=== PATIENT | female | born 1995 | race Caucasian/White ===

== ENCOUNTER 2017-12-26 22:50 | Emergency (ER) | payer OTHER ==
[2017-12-26] MEDS ORDERED: NORMAL SALINE 1000 ML 1,000 ML IV ONE (23:26)
[2017-12-26] MEDS ORDERED: MORPHINE SULFATE 10 MG/ML INJ IV ONE (23:26)
[2017-12-26] MEDS ORDERED: ONDANSETRON HCL INJ/PF 4 MG/2 ML SDV IV ONE (23:26)
--- NOTE | 2017-12-27 00:14 | RADIOLOGY REPORT (SQ) ---
US ABDOMEN DOPPLER LIMITED HISTORY: RUQ abdominal pain. COMPARISON: None. TECHNIQUE: Grayscale and color Doppler imaging of the right upper quadrant was performed. FINDINGS: The liver measures 15.6 cm. Normal liver echogenicity. Gallbladder is contracted, limiting evaluation for wall thickening. No shadowing gallstones are seen. Common bile duct measures 3 mm. No intrahepatic biliary ductal dilatation. Visualized pancreas is unremarkable. Right kidney measures 12.1 cm in length, without hydronephrosis. Visualized portions of the IVC and aorta are patent. IMPRESSION: Gallbladder is contracted, limiting evaluation for wall thickening. No shadowing gallstones.
[2017-12-27 00:17] LABS: ABSOLUTE BASOPHILS # (AUTO) 0.1 10^3/uL (0.0-0.2); ABSOLUTE EOSINOPHILS # (AUTO) 0.2 10^3/uL (0.0-0.6); ABSOLUTE LYMPHOCYTES (AUTO) 2.2 10^3/uL (0.5-4.7); ABSOLUTE MONOCYTES (AUTO) 0.4 10^3/uL (0.1-1.4); ABSOLUTE NEUT (AUTO) 2.5 10^3/uL (1.7-8.2); BASOPHILS % (AUTO) 1.2 % (0-2); EOSINOPHILS % (AUTO) 3.5 % (0-6); HEMATOCRIT 39.7 % (36.0-47.0); HEMOGLOBIN 13.3 g/dL (12.0-15.5); LYMPHOCYTES % (AUTO) 41.2 % (13-45); MEAN CORPUSCULAR HEMOGLOBIN 30.3 pg (27.0-33.4); MEAN CORPUSCULAR HGB CONC 33.5 g/dL (32.0-36.0); MEAN CORPUSCULAR VOLUME 90 fl (80-97); MONOCYTES % (AUTO) 7.7 % (3-13); PLATELET COUNT 268 10^3/uL (150-450); SEGMENTED NEUTROPHILS % (AUTO) 46.4 % (42-78); TOTAL CELLS COUNTED % (AUTO) 100 %; WHITE BLOOD COUNT 5.4 10^3/uL (4.0-10.5)
--- NOTE | 2017-12-27 00:20 | ER Document Report ---
ED General - General Chief Complaint: Epigastric Pain Stated Complaint: RIGHT SIDE/RIB PAIN Time Seen by Provider: 12/26/17 23:17 Notes: Patient is a 22-year-old female who presents with complaint of right upper quadrant and epigastric abdominal pain. She says is worse with eating. She had some nausea and vomiting. No blood or emesis. No black or tarry stools. No diarrhea. No blood in her stools. She first noticed pain a week ago. She was seen at [facility] at that time diagnosed with a UTI. She follow-up with medical clinic medical clinic told her that she did not have a UTI and placed her on Pepcid. She also has Phenergan prescribed for her. She went a few days without pain and the pain started occurring again became worse tonight after eating and therefore she came to the ER. No fevers. She denies abnormal vaginal discharge or bleeding. TRAVEL OUTSIDE OF THE [place] IN LAST 30 DAYS: No - Related Data Allergies/Adverse Reactions: No Known Allergies Allergy (Unverified 12/26/17 22:54) Past Medical History - Social History Smoking Status: Never Smoker Frequency of alcohol use: None Drug Abuse: None Family History: Other - cholecystectomy for mother and sister Review of Systems - Review of Systems Notes: My Normal Review Basic REVIEW OF SYSTEMS: CONSTITUTIONAL : Denies fever, chills, or sweats. Denies recent illness. EENT: Denies eye, ear, throat, or mouth pain or symptoms. Denies nasal or sinus congestion. CARDIOVASCULAR: Denies chest pain. RESPIRATORY: Denies cough, cold, or chest congestion. Denies shortness of breath, difficulty breathing, or wheezing. GASTROINTESTINAL: Right upper quadrant and epigastric abdominal pain. Some vomiting. GENITOURINARY: Denies difficulty urinating, painful urination, burning, frequency, or blood in urine. FEMALE GENITOURINARY: Denies vaginal bleeding, abnormal or irregular periods. LMP: MUSCULOSKELETAL: Denies neck or back pain or joint pain or swelling. SKIN: Denies rash or skin lesions. NEUROLOGICAL: Denies altered mental status or loss of consciousness. One episode of dizziness after getting out of the shower. ALL OTHER SYSTEMS REVIEWED AND NEGATIVE. Physical Exam - Vital signs Vitals: Temp Pulse Resp BP Pulse Ox 97.7 F 86 16 116/73 100 12/26/17 23:06 12/26/17 23:06 12/26/17 23:06 12/26/17 23:06 12/26/17 23:06 - Notes Notes: General Appearance: Well nourished, alert, cooperative, no acute distress, mild obvious discomfort. Vitals: reviewed, See vital signs table. Head: no swelling or tenderness to the head Eyes: PERRL, EOMI, Conjuctiva clear Mouth: No decreasd moisture Lungs: No wheezing, No rales, No rhonci, No accessory muscle use, good air exchange bilaterally. Heart: Normal rate, Regular rythm, No murmur, no rub Abdomen: Normal BS, soft, No rigidity, mild right upper quadrant epigastric abdominal tenderness to palpation. Remainder of abdomen is nontender. Extremities: strength 5/5 in all extremities, good pulses in all extremities, no swelling or tenderness in the extremities, no edema. Skin: warm, dry, appropriate color, no rash Neuro: speech clear, oriented x 3, normal affect, responds appropriately to questions. Course - Re-evaluation Re-evalutation: 12/27/17 01:15 On reevaluation patient is not in pain and has not had any vomiting since arriving here to the ER. She looks very well. I feel she is safe to be discharged home. Her gallbladder workup is negative. Despite her having a negative workup of her gallbladder she may still have underlying bili dyskinesia. Her symptoms could also be caused by gastritis or nonbleeding ulcer. I informed her to follow-up with primary care doctor to follow-up with the GI physician for reevaluation and to determine whether not she needs endoscopy, HIDA scan or both. I encouraged her to avoid spicy foods, fatty foods, or fried foods. Encouraged her return to ER immediately if she has worsening recurrent pain, vomiting, or fevers. Patient agrees with plan will be discharged home. I did not obtain a urinalysis at this time as patient has no urinary symptoms and has no pain in her lower abdomen. Dictation of this chart was performed using voice recognition software; therefore, there may be some unintended grammatical errors. - Vital Signs Vital signs: Temp Pulse Resp BP Pulse Ox 97.7 F 86 16 116/73 100 12/26/17 23:06 12/26/17 23:06 12/26/17 23:06 12/26/17 23:06 12/26/17 23:06 - Laboratory Result Diagrams: 12/27/17 00:04 12/27/17 00:04 Laboratory results interpreted by me: 12/27/17 00:04 Glucose 72 L Direct Bilirubin 0.5 H Discharge - Discharge Clinical Impression: Abdominal pain Qualifiers: Abdominal location: right upper quadrant Qualified Code(s): R10.11 - Right upper quadrant pain Condition: Good Disposition: HOME, SELF-CARE Additional Instructions: I suspect that your abdominal pain is either related to your gallbladder or potentially related to a gastritis or inflammation of your stomach. Please continue to take the medicine prescribed by your doctor for your stomach. We will also add a medication called Carafate and a prescription for a nausea medication called Zofran. The Zofran is less likely to make you sleepy or dizzy as compared to the Phenergan which is more likely to make you sleepy or dizzy. Please avoid Motrin or ibuprofen or Aleve. It is okay to take Tylenol. Please follow-up with the GI physician I referred you to. They will reevaluate you and determine whether or not you need an endoscopy to look at your stomach or a HIDA scan to evaluate the function of your gallbladder. Please return to the ER immediately if you have fevers, intractable pain, or intractable vomiting. Please eat a very bland diet and avoid any spicy foods, fast food, fried foods, or any foods that contain fat. No alcohol. Prescriptions: Ondansetron [Zofran Odt 4 mg Tablet] 1 tab PO Q4H PRN #15 tab.rapdis PRN Reason: For Nausea/Vomiting Sucralfate [Carafate Susp 1 Gm/10 Ml Udcup] 1 gm PO ACHS 10 Days udc Forms: Return to Work Referrals: NATALEE MORALES MD [ACTIVE STAFF] - 12/30/17
[2017-12-27 00:33] LABS: ALANINE AMINOTRANSFERASE 22 U/L (9-52); ALBUMIN 4.1 g/dL (3.5-5.0); ALKALINE PHOSPHATASE 48 U/L (38-126); ANION GAP 9 (5-19); ASPARTATE AMINO TRANSFERASE 36 U/L (14-36); BILIRUBIN,DIRECT 0.5 mg/dL (0.0-0.4); BILIRUBIN,TOTAL 1.2 mg/dL (0.2-1.3); BLOOD UREA NITROGEN 17 mg/dL (7-20); CALCIUM 9.4 mg/dL (8.4-10.2); CARBON DIOXIDE 26 mmol/L (22-30); CHLORIDE 104 mmol/L (98-107); GLUCOSE 72 mg/dL (75-110); LIPASE 100.9 U/L (23-300); SODIUM 138.8 mmol/L (137-145); TOTAL PROTEIN 7.1 g/dL (6.3-8.2)
[2017-12-27 01:37] VITALS: BP 116/77
== END 2017-12-27 01:38 | disposition home or self-care (01) ==
LOC: ER 22:50
DX: R10.11 Right upper quadrant pain (principal); R10.13 Epigastric pain; R11.2 Nausea with vomiting, unspecified; R42 Dizziness and giddiness
CPT/HCPCS: 99284; 96361; 96374; 96375; 36415; 83690; 84703; 85025; 80053; 76705; 93976; J2270; J2405; J7030

== ENCOUNTER 2018-12-04 08:57 | Emergency (ER) | payer OTHER ==
[2018-12-04] MEDS ORDERED: METOCLOPRAMIDE HCL INJ/PF 10 MG/2 ML SDV IV ONE (10:32)
[2018-12-04] MEDS ORDERED: NORMAL SALINE 1000 ML 1,000 ML IV ONE (10:32)
--- NOTE | 2018-12-04 10:37 | ER Document Report ---
ED General - General Chief Complaint: Pelvic Pain Stated Complaint: PELVIC PAIN,NAUSEA,VOMITING Time Seen by Provider: 12/04/18 10:14 Notes: Patient is a G2, P1 23-year-old female who presents to the emergency department with a chief complaint of pelvic pain. She is 18 weeks . She states that she has had on and off pelvic pain since last week. She also states that she feels nauseous and states that she feels like she is not getting any weight. She saw her MACHINE SANDER on Tuesday and states that she reported her symptoms, but did not have anything done for her. Patient is currently taking vitamins and denies any past medical history. Patient states that she has been given Flagyl and has only had one dose of her Flagyl. She was diagnosed with bacterial vaginosis by her MACHINE SANDER. She denies any fever, diarrhea, or any other symptoms. TRAVEL OUTSIDE OF THE [place] IN LAST 30 DAYS: No - Related Data Allergies/Adverse Reactions: No Known Allergies Allergy (Unverified 12/04/18 09:00) Past Medical History - Social History Smoking Status: Never Smoker Family History: Other - cholecystectomy for mother and sister Patient has suicidal ideation: No Patient has homicidal ideation: No Renal/ Medical History: Denies: Hx Peritoneal Dialysis Past Surgical History: Reports: Hx Nose Surgery - sinus, Hx Orthopedic Surgery Review of Systems - Review of Systems Notes: REVIEW OF SYSTEMS: CONSTITUTIONAL : Denies recent illness. Denies recent unintentional weight loss. Denies fever, chills, or sweats. EENT: Denies eye, ear, throat, or mouth pain, discharge, or symptoms. Denies nasal or sinus congestion. CARDIOVASCULAR: Denies chest pain. RESPIRATORY: Denies shortness of breath, cough, congestion, difficulty breathing, or wheezing. GASTROINTESTINAL: See HPI. GENITOURINARY: Denies difficulty urinating, burning, blood in urine, urgency or frequency. FEMALE GENITOURINARY: See HPI. MUSCULOSKELETAL: Denies neck and back pain. Denies joint pain or swelling. SKIN: Denies rash, itchiness, or lesions HEMATOLOGIC : Denies easy bruising or bleeding. LYMPHATIC: Denies swollen, painful, enlarged glands. NEUROLOGICAL: Denies no numbness or tingling denies weakness. Denies headache. Denies altered mental status. Denies alteration in speech. PSYCHIATRIC: Denies stress, anxiety, alteration in sleep patterns, or depression. All other systems reviewed and negative. Physical Exam - Vital signs Vitals: Temp Pulse Resp BP Pulse Ox 98.7 F 85 20 117/59 L 97 12/04/18 09:02 12/04/18 09:02 12/04/18 09:02 12/04/18 09:02 12/04/18 09:02 - Notes Notes: PHYSICAL EXAMINATION: GENERAL: Appears well, healthy, well-nourished, no acute distress. HEAD: Normocephalic, atraumatic. EYES: PERRL, conjunctiva normal, all extraocular movements intact, sclera nonicteric ENT: Moist mucous membranes. NECK: Supple, no noticeable swelling, redness, rash. Normal range of motion. LUNGS: Equal breath sounds bilaterally and clear to auscultation. No wheezes rales or rhonchi. CARDIOVASCULAR: S1-S2, regular rate, regular rhythm. Radial pulses 2+, normal. ABDOMEN: Normoactive bowel sounds. Soft, nontender, no guarding, no rebound tenderness, and no masses palpated. EXTREMITIES: Normal strength and range of motion, no pitting or edema. No cyan osis. NEUROLOGICAL: Moves all extremities upon command. Strength 5/5 in all extremities. PSYCH: Normal mood, normal affect. SKIN: Warm, dry. No rash, lesions, ulcerations noted. Normal skin turgor. REGIONAL ADMINISTRATIVE ASSISTANT: Left adnexal tenderness, yellow/white discharge noted at cervix. Course - Re-evaluation Re-evalutation: 12/04/18 13:35 Pelvic exam done with ROLY Schwab at bedside. Patient had left adnexal tenderness on pelvic exam. Patient does have a significant amount of yellow/white discharge noted on her pelvic exam. The patient will be sent for a transvaginal ultrasound to rule out tubo-ovarian abscess. Patient then mention ed that she is currently on Flagyl from [facility]. She states that she took 1 dose yesterday, but started her antibiotics late. CBC is unremarkable. Her quantitative hCG is consistent with her 18 weeks of . Urinalysis shows a small amount of leukocytes in her urine, but this may be due to her vaginal discharge noted on pelvic exam. Patient states that she feels better after receiving IV Reglan and IV fluids. 12/04/18 14:53 Ultrasound called to inform me that the adnexa will not be visualized due to the patient being 18 weeks . I have explained this to the patient. The patient has 4+ bacteria and 4+ epithelial cells noted on her wet mount. No yeast or trichomonas noted. I have instructed her to continue to take her Flagyl. I also told her that the medication that I gave her is the same medication they will hospital gave her and that she can use it for nausea. I instructed her to follow-up with her MACHINE SANDER. Follow-up precautions were given. Verbal discharge instructions were given to the patient. They verbalized understanding. They are stable for discharge. - Vital Signs Vital signs: Temp Pulse Resp BP Pulse Ox 97.8 F 73 17 106/59 L 98 12/04/18 15:52 12/04/18 15:52 12/04/18 15:52 12/04/18 15:52 12/04/18 15:52 - Laboratory Result Diagrams: 12/04/18 11:22 Laboratory results interpreted by me: 12/04/18 12/04/18 11:22 11:22 Beta HCG, Quant 28483.00 H Urine Ketones 100 H Urine Urobilinogen 2.0 H Ur Leukocyte Esterase TRACE H Discharge - Discharge Clinical Impression: Bacterial vaginosis in Condition: Stable Disposition: HOME, SELF-CARE Additional Instructions: You were seen today in the emergency department for pelvic pain. You do have bacterial vaginosis. Please continue to take the medications (metronidazole, metoclopramide) that you are given at [facility]. You can also take Tylenol to help with pain. These are both safe during . If you have worsening symptoms, please return to the emergency department.
[2018-12-04 11:40] LABS: ABSOLUTE LYMPHOCYTES (AUTO) 1.5 10^3/uL (0.5-4.7); ABSOLUTE MONOCYTES (AUTO) 0.3 10^3/uL (0.1-1.4); ABSOLUTE NEUT (AUTO) 6.5 10^3/uL (1.7-8.2); BASOPHILS % (AUTO) 0.4 % (0-2); EOSINOPHILS % (AUTO) 0.2 % (0-6); HEMATOCRIT 36.1 % (36.0-47.0); HEMOGLOBIN 12.3 g/dL (12.0-15.5); LYMPHOCYTES % (AUTO) 18.3 % (13-45); MEAN CORPUSCULAR HEMOGLOBIN 29.8 pg (27.0-33.4); MEAN CORPUSCULAR HGB CONC 34.1 g/dL (32.0-36.0); MEAN CORPUSCULAR VOLUME 87 fl (80-97); MONOCYTES % (AUTO) 3.9 % (3-13); PLATELET COUNT 216 10^3/uL (150-450); RED BLOOD COUNT 4.13 10^6/uL (3.72-5.28); SEGMENTED NEUTROPHILS % (AUTO) 77.2 % (42-78); TOTAL CELLS COUNTED % (AUTO) 100 %; WHITE BLOOD COUNT 8.4 10^3/uL (4.0-10.5)
[2018-12-04 11:47] LABS: APPEARANCE,URINE CLEAR; BILIRUBIN,URINE NEGATIVE (NEGATIVE); COLOR,URINE YELLOW; GLUCOSE, URINE NEGATIVE (NEGATIVE); KETONES,URINE 100 mg/dL (NEGATIVE); LEUKOCYTE ESTERASE,URINE TRACE (NEGATIVE); NITRITE,URINE NEGATIVE (NEGATIVE); PROTEIN,URINE NEGATIVE (NEGATIVE)
[2018-12-04 11:48] LABS: URINE SPECIFIC GRAVITY 1.019
--- NOTE | 2018-12-04 12:49 | RADIOLOGY REPORT (SQ) ---
EXAM DESCRIPTION: U/S OB 14+ TRNABD 1GES W/O DOP COMPLETED DATE/TIME: 12/04/2018 12:33 pm REASON FOR STUDY: pelvic pain COMPARISON: None. TECHNIQUE: Static and Dynamic grayscale imaging performed of gravid uterus using transabdominal appr oach. Additional selected color Doppler and spectral images recorded. All stored on PACS. LIMITATIONS: None. FINDINGS: FETUSES SEEN:1 EGA: 18 weeks 0 days Calculated using BPD,FL,HC,AC documented on images. No discrepancy with clinica l dates. KENAN: 05/07/2019 EFW: 233 grams PERCENTILE: Not applicable. Fetus less than or equal to 20 weeks gestation. CASSIA: Adequate PLACENTA: Anterior grade 0 PRESENTATION: Breech. ANATOMY: HEART RATE: 141 beats per minute. FOUR CHAMBER HEART: Not visualized THREE VESSEL CORD: Yes. CORD INSERTION: Visualized. KIDNEYS AND BLADDER: Not visualized STOMACH: Visualized. Appears normal. SPINE: Not visualized BRAIN AND LATERAL VENTRICLES: Visualized. Appear normal. OTHER: No other significant finding. MATERNAL ADNEXA: Maternal ovaries not visualized. CERVICAL LENGTH: 3.9 cm Closed. OTHER: No other significant finding. IMPRESSION: LIVING INTRAUTERINE . ESTIMATED GESTATIONAL AGE 18 weeks 0 days NO VISUALIZED ANOMALIES. Trimester of : Second trimester - 13 weeks 1 day to 27 weeks 6 days. TECHNICAL DOCUMENTATION: JOB ID: [id number] [employer]- All Rights Reserved Reading location - IP/workstation name: [email or web address]
[2018-12-04 15:01] LABS: BACTERIA (WET MOUNT) 4+ BACTERIA SEEN; EPITHELIALS (WET MOUNT) 4+ EPITHELIALS SEEN; RBCS (WET MOUNT) RARE RBCS SEEN; T.VAGINALIS (WET MOUNT) NO TRICHOMONAS SEEN; WBCS (WET MOUNT) 4+ WBCS SEEN; YEAST (WET MOUNT) NO YEAST SEEN
[2018-12-04 15:53] VITALS: BP 106/59
[2018-12-04 16:32] LABS: CHLAM PCR NOT DETECTED (NOT DETECT)
== END 2018-12-04 15:52 | disposition home or self-care (01) ==
LOC: ER 08:57
DX: O23.592 Infection of other part of genital tract in pregnancy, second trimester (principal); B96.89 Other specified bacterial agents as the cause of diseases classified elsewhere; R10.2 Pelvic and perineal pain; Z3A.18 18 weeks gestation of pregnancy
CPT/HCPCS: 86900; 86901; 36415; 87210; 84702; 85025; 81001; 87491; 87591; 76805; J2765; J7030; 96361; 96374; 99284